=== PATIENT | male | born 1990 | race Caucasian/White ===

== ENCOUNTER 2019-06-11 15:44 | Emergency (ER) | payer SELFPAY ==
--- NOTE | 2019-06-11 16:38 | ER Document Report ---
ED Medical Screen (RME) - General Chief Complaint: Testicular Pain Stated Complaint: TESTICULAR PAIN Time Seen by Provider: 06/11/19 16:31 Mode of Arrival: Ambulatory Information source: Patient Notes: 29-year-old male presented to ED for complaint of bilateral testicular pain for 2 months. He states that he was seen in [place] and given a shot and told that he had a STD and given a prescription but he did not fill the prescription. He states he is continued to have pain in bilateral testicles. He states he does smoke a pack a day does not drink or do any drugs and is looking for work. He is alert oriented respirations regular and unlabored speaking in full sentences. I have greeted and performed a rapid initial assessment of this patient. A comprehensive ED assessment and evaluation of the patient, analysis of test results and completion of medical decision making process will be conducted by an additional ED providers. TRAVEL OUTSIDE OF THE [place] IN LAST 30 DAYS: No - Related Data Allergies/Adverse Reactions: No Known Allergies Allergy (Unverified 06/11/19 16:20) Physical Exam - Vital signs Vitals: Temp Pulse Resp BP Pulse Ox 98.2 F 98 20 150/93 H 97 06/11/19 16:14 06/11/19 16:14 06/11/19 16:14 06/11/19 16:14 06/11/19 16:14 Course - Vital Signs Vital signs: Temp Pulse Resp BP Pulse Ox 98.2 F 98 20 150/93 H 97 06/11/19 16:14 06/11/19 16:14 06/11/19 16:14 06/11/19 16:14 06/11/19 16:14
--- NOTE | 2019-06-11 18:10 | RADIOLOGY REPORT (SQ) ---
EXAM DESCRIPTION: U/S SCROTUM W/O DOPPLER COMPLETED DATE/TIME: 06/11/2019 5:34 pm REASON FOR STUDY: bilateral testicular pain COMPARISON: None. TECHNIQUE: Static and realtime melo scale imaging of the scrotum and testes. Selected color Doppler and spectral images recorded to document blood flow. LIMITATIONS: None. FINDINGS: RIGHT: TESTICLE: Normal size. Normal echotexture. Normal blood flow. No mass. EPIDIDYMIS: Normal. HYDROCELE OR VARICOCELE: No. HERNIA OR EXTRA-TESTICULAR MASS: No. OTHER: No other significant finding. LEFT: TESTICLE: Normal size. Normal echotexture. Normal blood flow. No mass. EPIDIDYMIS: Normal. HYDROCELE OR VARICOCELE: No. HERNIA OR EXTRA-TESTICULAR MASS: No. OTHER: No other significant finding. IMPRESSION: NO EVIDENCE OF TESTICULAR MASS OR TORSION. TECHNICAL DOCUMENTATION: JOB ID: [id number] [place]-72 2010 [employer]- All Rights Reserved Reading location - IP/workstation name: [email or web address]
[2019-06-11 18:42] LABS: CHLAM PCR NOT DETECTED (NOT DETECT)
[2019-06-11 19:01] LABS: APPEARANCE,URINE CLEAR; BILIRUBIN,URINE NEGATIVE (NEGATIVE); COLOR,URINE YELLOW; GLUCOSE, URINE NEGATIVE (NEGATIVE); KETONES,URINE TRACE mg/dL (NEGATIVE); LEUKOCYTE ESTERASE,URINE NEGATIVE (NEGATIVE); NITRITE,URINE NEGATIVE (NEGATIVE); PROTEIN,URINE NEGATIVE (NEGATIVE); URINE SPECIFIC GRAVITY 1.029
[2019-06-11] MEDS ORDERED: CEFTRIAXONE INJ 250 MG VIAL IM ONE (19:11)
[2019-06-11] MEDS ORDERED: AZITHROMYCIN 250 MG TABLET PO ONE (19:11)
--- NOTE | 2019-06-11 19:24 | ER Document Report ---
ED General - General Chief Complaint: Testicular Pain Stated Complaint: TESTICULAR PAIN Time Seen by Provider: 06/11/19 16:31 Mode of Arrival: Ambulatory Notes: Patient is a 29-year-old male presents to the emergency department for bilateral testicular pain potential STD exposure. Patient states he was seen in the emergency department in [place] approximately 2 months ago for generalized testicular swelling. States he was given a shot of antibiotics but then was also given a prescription for which he never got filled. States the generalized redness and swelling in his testicle had gone down but he still continues with intermittent pain. Patient's denying any penile discharge or dysuria. Patient denies any trauma or injury to his testicles or penis. Patient is also denying any sort of rash. TRAVEL OUTSIDE OF THE [place] IN LAST 30 DAYS: No - Related Data Allergies/Adverse Reactions: No Known Allergies Allergy (Unverified 06/11/19 16:20) Past Medical History - General Information source: Patient - Social History Smoking Status: Current Every Day Smoker Chew tobacco use (# tins/day): No Frequency of alcohol use: None Drug Abuse: None Family History: Reviewed & Not Pertinent Patient has suicidal ideation: No Patient has homicidal ideation: No Renal/ Medical History: Denies: Hx Peritoneal Dialysis Review of Systems - Review of Systems Constitutional: denies: Fever EENT: No symptoms reported Cardiovascular: No symptoms reported Respiratory: No symptoms reported Gastrointestinal: No symptoms reported Genitourinary: See HPI Male Genitourinary: See HPI Musculoskeletal: No symptoms reported Skin: See HPI Hematologic/Lymphatic: No symptoms reported Neurological/Psychological: No symptoms reported Physical Exam - Vital signs Vitals: Temp Pulse Resp BP Pulse Ox 98.2 F 98 20 150/93 H 97 06/11/19 16:14 06/11/19 16:14 06/11/19 16:14 06/11/19 16:14 06/11/19 16:14 - Notes Notes: GENERAL: Alert, interacts well. No acute distress. HEAD: Normocephalic, atraumatic. EYES: Pupils equal, round, and reactive to light. Extraocular movements intact. ENT: Oral mucosa moist, tongue midline. NECK: Full range of motion. Supple. Trachea midline. LUNGS: Clear to auscultation bilaterally, no wheezes, rales, or rhonchi. No respiratory distress. HEART: Regular rate and rhythm. No murmur ABDOMEN: Soft, non-tender. Non-distended. Bowel sounds present in all 4 quadrants. EXTREMITIES: Moves all 4 extremities spontaneously. No edema, normal radial and dorsalis pedis pulses bilaterally. No cyanosis. BACK: no cervical, thoracic, lumbar midline tenderness. No saddle anesthesia, normal distal neurovascular exam. NEUROLOGICAL: Alert and oriented x3. Normal speech. cranial nerves II through XII grossly intact PSYCH: Normal affect, normal mood. SKIN: Warm, dry, normal turgor. No rashes or lesions noted. Genitalia: [employer] Beatriz VALDERRAMA, bilateral testicles descended nonerythematous, nonswollen, nontender on palpation. Circumcised penis no active discharge at the meatus, no obvious lesions noted. Course - Re-evaluation Re-evalutation: 06/11/19 19:21 Patient's gonorrhea and Chlamydia testing is still pending. Patient's ultrasound reveals no signs of torsion, hydrocele, epididymitis. Patient was prophylactically treated for gonorrhea and chlamydia in the emergency department. Discussed close follow-up with [facility]. At this time will discharge with return precautions and follow-up recommendations. Verbal discharge instructions given a the bedside and opportunity for questions given. Medication warnings reviewed. Patient is in agreement with this plan and has verbalized understanding of return precautions and the need for primary care follow-up in the next 24-72 hours. This medical record was dictated with voice recognizing software. There may be grammatical, syntax errors that are unintended. - Vital Signs Vital signs: Temp Pulse Resp BP Pulse Ox 98.2 F 98 20 150/93 H 97 06/11/19 16:14 06/11/19 16:14 06/11/19 16:14 06/11/19 16:14 06/11/19 16:14 - Laboratory Laboratory results interpreted by me: 06/11/19 18:37 Urine Ketones TRACE H Urine Urobilinogen 2.0 H Urine Ascorbic Acid 40 H Discharge - Discharge Clinical Impression: Testicular pain, STD exposure Condition: Stable Disposition: HOME, SELF-CARE Instructions: Testicular Pain ([facility]), Gonorrhea ([facility]), Chlamydia ([facility]) Additional Instructions: As we discussed you have been seen and treated in the emergency department for your generalized chest regular pain and exposure to sexually transmitted disease. You have been treated for gonorrhea and chlamydia. Your ultrasound results of your testicle shows no abnormalities. Is my recommendation that you tell all of your sexual partners they should also be tested and treated for sexually transmitted diseases. Please follow-up with [facility], [facility] in the next 24 to 48 hours. These are clinics you can go to even if you are uninsured. Please return to the emergency room for any further concerns. Referrals: [facility] [Provider Group] - Follow up as needed [facility] [Provider Group] - Follow up as needed
[2019-06-11 19:54] VITALS: BP 137/79
== END 2019-06-11 19:51 | disposition home or self-care (01) ==
LOC: ER 15:44
DX: N50.819 Testicular pain, unspecified (principal); Z20.2 Contact with and (suspected) exposure to infections with a predominantly sexual mode of transmission; F17.200 Nicotine dependence, unspecified, uncomplicated
CPT/HCPCS: 81001; 87491; 87591; 76870; J0696; 96372; 99284

== ENCOUNTER 2019-10-01 21:59 | Emergency (ER) | payer OTHER ==
[2019-10-01 22:26] VITALS: BP 154/83
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
== END 2019-10-01 23:18 | disposition home or self-care (01) ==
LOC: ER 21:59
DX: S80.212A Abrasion, left knee, initial encounter (principal); S80.211A Abrasion, right knee, initial encounter; R22.0 Localized swelling, mass and lump, head; V89.2XXA Person injured in unspecified motor-vehicle accident, traffic, initial encounter; F17.200 Nicotine dependence, unspecified, uncomplicated
CPT/HCPCS: 99283